=== PATIENT | male | born 1985 | race Caucasian/White ===

== ENCOUNTER 2016-02-29 00:52 | Emergency (ER) | payer OTHER ==
[2016-02-29 01:33] VITALS: BP 159/69; PULSE 99; TEMP 98.7; BMI 32.5
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
== END 2016-02-29 02:50 | disposition home or self-care (01) ==
LOC: JER 00:52
DX: S83.8X1A Sprain of other specified parts of right knee, initial encounter (principal); X50.0XXA Overexertion from strenuous movement or load, initial encounter; Y93.89 Activity, other specified; Y92.89 Other specified places as the place of occurrence of the external cause; Y99.0 Civilian activity done for income or pay
CPT/HCPCS: 99283-25

== ENCOUNTER 2016-07-04 14:28 | Emergency (ER) | payer OTHER ==
[2016-07-04 14:50] VITALS: BP 157/71; PULSE 93; TEMP 98.4; BMI 27.8
[2016-07-04] MEDS ORDERED: IBUPROFEN 400 MG TABLET (FP) PO ONE ×2 (15:29→15:33)
[2016-07-04] MEDS ORDERED: CYCLOBENZAPRINE HCL 10 MG TABLET (FP) PO ONE (15:30)
[2016-07-04] MEDS ORDERED: CYCLOBENZAPRINE HCL 10 MG TABLET (FP) ONE (15:33)
--- NOTE | 2016-07-04 15:35 | PDOC ---
History of Present Illness - General Chief Complaint: Back Pain Stated Complaint: LOWER BACK PAIN Time Seen by Provider: 07/04/16 14:53 History Source: Patient Exam Limitations: No Limitations - History of Present Illness Initial Comments: 07/04/16 15:30 [employer], while on duty today strained low back. Here with complaints of mild spasm, and pain to the mid to lower back musculature. No numbness or tingling to hands or feet, no history of back problems, no other injury. 07/04/16 19:16 Occurred: reports: just prior to arrival, this morning Severity: reports: mild, moderate Pain Location: reports: back Method of Injury: Yes: other (heavy lifting/ ) Modifying Factors: improves with: pain medication Associated Symptoms (Fall): denies symptoms Past History - Travel Traveled outside of the country in the last 30 days: No Close contact w/someone who was outside of country & ill: No - Past Medical History Allergies/Adverse Reactions: Allergies Allergy/AdvReac Type Severity Reaction Status Date / Time sulfamethoxazole Allergy Rash Verified 07/04/16 14:50 [From Bactrim] trimethoprim [From Bactrim] Allergy Rash Verified 07/04/16 14:50 Home Medications: Ambulatory Orders Cyclobenzaprine HCl [Flexeril 10 mg] 10 mg PO BID PRN #14 tablet 07/04/16 Thyroid Disease: No - Immunization History Immunization Up to Date: Yes - Psycho/Social/Smoking Cessation Hx Anxiety: No Suicidal Ideation: No Smoking Status: No Smoking History: Never smoked Number of Cigarettes Smoked Daily: 0 Cigars Per Day: 0 Hx Alcohol Use: No Drug/Substance Use Hx: No Substance Use Type: None Review of Systems - Review of Systems Able to Perform ROS?: Yes Is the patient limited Frisian proficient: Yes Constitutional: Yes: Symptoms Reported, See HPI, Malaise. No: Fever HEENTM: No: Symptoms Reported Respiratory: No: Symptoms reported, See HPI ABD/GI: Yes: Symptoms Reported Musculoskeletal: Yes: Symptoms Reported, See HPI, Back Pain, Muscle Weakness Integumentary: No: Symptoms Reported Neurological: Yes: Symptoms reported All Other Systems: Reviewed and Negative *Physical Exam - Vital Signs Last Vital Signs Temp Pulse Resp BP Pulse Ox 98.4 F 93 H 18 157/71 100 07/04/16 14:48 07/04/16 14:48 07/04/16 14:48 07/04/16 14:48 07/04/16 14:48 - Physical Exam General Appearance: Yes: Nourished, Appropriately Dressed, Apparent Distress, Mild Distress HEENT: positive: BRANDON, Normal ENT Inspection, TMs Normal, Pharynx Normal Neck: positive: Supple. negative: Tender Respiratory/Chest: positive: Lungs Clear, Normal Breath Sounds Cardiovascular: positive: Regular Rate Gastrointestinal/Abdominal: positive: Soft. negative: Tender Musculoskeletal: positive: Normal Inspection, Muscle Spasm (some tension, and mild spasm noted the paravertebral spinous muscles worse the lumbar spine and worse on the right. No spine tenderness no bone tenderness. Range of motion is limited secondary to that pain but has full). negative: Vertebral Tenderness Extremity: positive: Normal Inspection, Normal Range of Motion Integumentary: positive: Normal Color, Dry, Warm, Pale Neurologic: positive: mop maker II-XII NML intact, Fully Oriented, Normal Mood/Affect , Normal Response, Motor Strength 5/5 Progress Note - Progress Note Progress Note: Back strain, will treat with NSAIDs and cyclobenzaprine *DC/Admit/Observation/Transfer Diagnosis at time of Disposition: Low back strain Qualifiers: Encounter type: initial encounter Qualified Code(s): S39.012A - Strain of muscle, fascia and tendon of lower back, initial encounter Low back pain Qualifiers: Chronicity: acute Back pain laterality: unspecified Sciatica presence: without sciatica Qualified Code(s): M54.5 - Low back pain - Discharge Dispostion Disposition: HOME Condition at time of disposition: Stable Admit: No - Prescriptions Prescriptions: Cyclobenzaprine HCl [Flexeril 10 mg] 10 mg PO BID PRN #14 tablet PRN Reason: spasm - Patient Instructions Printed Discharge Instructions: DI for Low Back Pain Additional Instructions: Rest, no heavy lifting or exercise until pain is resolved Hot soaks to neck and low back as often as possible/hot showers or Jacuzzis No massage or therapy until spasm is gone Continue ibuprofen 2-200 mg tablets every 6 hours for the next 3 days then as needed for pain and swelling Cyclobenzaprine 1-10mg every 8 hours as needed for spasm If not significant improvement within 24 hours with medication and rest regime, followup with private physician for change in medications and /or therapy. - Post Discharge Activity Work/School Note: Back to Work
== END 2016-07-04 15:57 | disposition home or self-care (01) ==
LOC: JERFT 14:28
DX: S39.012A Strain of muscle, fascia and tendon of lower back, initial encounter (principal); M54.5 Low back pain; X58.XXXA Exposure to other specified factors, initial encounter; Y93.89 Activity, other specified; Y92.89 Other specified places as the place of occurrence of the external cause; Y99.0 Civilian activity done for income or pay
CPT/HCPCS: 99281-25

== ENCOUNTER 2016-10-07 21:26 | Emergency (ER) | payer BC, OTHER ==
[2016-10-07 21:48] VITALS: BP 139/102; PULSE 82; TEMP 97.4; BMI 33.2
[2016-10-07] MEDS ORDERED: DEXAMETHASONE SOD PHOSPHATE 10 MG/1 ML VIAL IM ONE (22:11)
--- NOTE | 2016-10-07 22:17 | PDOC ---
History of Present Illness - General Chief Complaint: Allergic Reaction Stated Complaint: BITE Time Seen by Provider: 10/07/16 22:04 History Source: Patient Exam Limitations: No Limitations - History of Present Illness Initial Comments: 10/07/16 22:11 30 yr male with c/o insect bite to lip and behind right ear at a softball game tonight. no diff breathing or swallowing. allergy to bactrim. Pt took benadryl GAS PUMPER 50mg. Severity: mild Past History - Past Medical History Allergies/Adverse Reactions: Allergies Allergy/AdvReac Type Severity Reaction Status Date / Time sulfamethoxazole Allergy Rash Verified 07/04/16 14:50 [From Bactrim] trimethoprim [From Bactrim] Allergy Rash Verified 07/04/16 14:50 Home Medications: Ambulatory Orders Valacyclovir HCl [Valtrex -] 500 mg PO ASDIR 10/07/16 Thyroid Disease: No Other medical history: Pt denies - Immunization History Immunization Up to Date: Yes - Psycho/Social/Smoking Cessation Hx Anxiety: No Suicidal Ideation: No Smoking Status: No Smoking History: Never smoked Have you smoked in the past 12 months: No Number of Cigarettes Smoked Daily: 0 Cigars Per Day: 0 Information on smoking cessation initiated: No Hx Alcohol Use: No Drug/Substance Use Hx: No Substance Use Type: None Review of Systems - Review of Systems Able to Perform ROS?: Yes Is the patient limited Dutch proficient: No Constitutional: No: Symptoms Reported HEENTM: Yes: Symptoms Reported Respiratory: No: Symptoms reported Cardiac (ROS): No: Symptoms Reported ABD/GI: No: Symptoms Reported : No: Symptoms Reported Musculoskeletal: No: Symptoms Reported Integumentary: No: Symptoms Reported *Physical Exam - Vital Signs Last Vital Signs Temp Pulse Resp BP Pulse Ox 97.4 F L 82 20 139/102 99 10/07/16 21:44 10/07/16 21:44 10/07/16 21:44 10/07/16 21:44 10/07/16 21:44 - Physical Exam General Appearance: Yes: Nourished, Appropriately Dressed HEENT: positive: EOMI, BRANDON, Other (swelling left lower lip outer 1/3rd, neg tounge swelling, uvula midline no swelling ) Neck: positive: Supple. negative: Tender Respiratory/Chest: positive: Lungs Clear, Normal Breath Sounds Cardiovascular: positive: Regular Rhythm, Regular Rate Lymphatic: negative: Adenopathy Musculoskeletal: positive: Normal Inspection Extremity: positive: Normal Capillary Refill, Normal Inspection, Normal Range of Motion Integumentary: positive: Normal Color, Dry, Warm, Swelling (posterior auricular right side with insect bite mild swelling ) Neurologic: positive: Fully Oriented, Alert, Normal Mood/Affect, Normal Response , Motor Strength 06/21 Medical Decision Making - Medical Decision Making 10/07/16 22:14 cc: insect bite to lower lip and behind right ear while playing softball about 2hrs ago. no diff breathing or swallowing will give decadron IM ice to lower lip placed pt speaking clearly uvula midline no distress. 10/07/16 22:31 BP checked on discharge 138/78 left arm pt has no history of baldev BP pt has no headache 10/07/16 22:48 *DC/Admit/Observation/Transfer Diagnosis at time of Disposition: Insect bite Qualifiers: Encounter type: initial encounter Qualified Code(s): W57.XXXA - Bitten or stung by nonvenomous insect and other nonvenomous arthropods, initial encounter - Discharge Dispostion Disposition: HOME Condition at time of disposition: Stable - Patient Instructions Additional Instructions: apply ice to lower lip every 2hrs for 15 minutes take benadryl 50mg every 6hrs as needed for itching or swelling you can also take motrin (over the counter advil, ibuprofen or motrin ) 600mg every 6hrs will help with swelling Return to ER if any worsening symptoms always use bug spray to prevent insect bites, mosquitos
[2016-10-07] MEDS ORDERED: DEXAMETHASONE SOD PHOSPHATE 10 MG/1 ML VIAL ONE (22:19)
== END 2016-10-07 22:35 | disposition home or self-care (01) ==
LOC: JER 21:26 → JERFT 21:26
PROC: 3E0233Z Introduction of Anti-inflammatory into Muscle, Percutaneous Approach (ICD-10-PCS; principal; 2016-10-07)
DX: S00.561A Insect bite (nonvenomous) of lip, initial encounter (principal); S00.461A Insect bite (nonvenomous) of right ear, initial encounter; W57.XXXA Bitten or stung by nonvenomous insect and other nonvenomous arthropods, initial encounter; Y93.67 Activity, basketball; Y92.320 Baseball field as the place of occurrence of the external cause; Y99.8 Other external cause status
CPT/HCPCS: 99281-25

== ENCOUNTER 2016-10-14 11:00 | Emergency (ER) | payer OTHER, BC ==
[2016-10-14 11:04] VITALS: BP 145/90; PULSE 74; TEMP 98; BMI 33.2
[2016-10-14] MEDS ORDERED: CYCLOBENZAPRINE HCL 10 MG TABLET (FP) PO ONE (12:18)
[2016-10-14] MEDS ORDERED: KETOROLAC TROMETHAMINE 60 MG/2 ML VIAL IM ONE (12:18)
[2016-10-14] MEDS ORDERED: KETOROLAC TROMETHAMINE 60 MG/2 ML VIAL ONE (12:18)
[2016-10-14] MEDS ORDERED: CYCLOBENZAPRINE HCL 10 MG TABLET (FP) ONE (12:18)
--- NOTE | 2016-10-14 12:22 | PDOC ---
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 has suffered same type of strain approximately one month ago and spontaneously resolved. States this morning was uncertain as to the type of stretch however felt the same pulling. States is at waistline and radiates into gluteus. No numbness or tingling to hands or feet, no problems with bowel or bladder. Has taken no medication for relief of same. 10/14/16 13:05 Occurred: reports: just prior to arrival Severity: reports: mild, moderate Pain Location: reports: back Method of Injury: Yes: unknown Modifying Factors: improves with: None Loss of Consciousness: no loss of consciousness Associated Symptoms (Fall): denies symptoms Past History - Travel Traveled outside of the country in the last 30 days: No Close contact w/someone who was outside of country & ill: No - Past Medical History Allergies/Adverse Reactions: Allergies Allergy/AdvReac Type Severity Reaction Status Date / Time sulfamethoxazole Allergy Rash Verified 10/14/16 11:04 [From Bactrim] trimethoprim [From Bactrim] Allergy Rash Verified 10/14/16 11:04 Home Medications: Ambulatory Orders Cyclobenzaprine HCl [Flexeril 10 mg] 10 mg PO BID PRN #14 tablet 10/14/16 Thyroid Disease: No - Immunization History Immunization Up to Date: Yes - Psycho/Social/Smoking Cessation Hx Anxiety: No Suicidal Ideation: No Smoking Status: No Smoking History: Never smoked Have you smoked in the past 12 months: No Number of Cigarettes Smoked Daily: 0 Cigars Per Day: 0 Information on smoking cessation initiated: No Hx Alcohol Use: No Drug/Substance Use Hx: No Substance Use Type: None Trauma Specific PMHX - Complaint Specific PMHX Back Injury: Yes Neck Injury: No Review of Systems - Review of Systems Able to Perform ROS?: Yes Is the patient limited Ukrainian proficient: Yes Constitutional: Yes: See HPI, Malaise. No: Symptoms Reported HEENTM: Yes: See HPI. No: Symptoms Reported Respiratory: Yes: Symptoms reported, See HPI Musculoskeletal: Yes: Symptoms Reported, See HPI, Back Pain, Muscle Pain, Muscle Weakness Integumentary: No: Symptoms Reported All Other Systems: Reviewed and Negative *Physical Exam - Vital Signs Last Vital Signs Temp Pulse Resp BP Pulse Ox 98 F 74 18 145/90 99 10/14/16 11:01 10/14/16 11:01 10/14/16 11:01 10/14/16 11:01 10/14/16 11:01 - Physical Exam General Appearance: Yes: Nourished, Appropriately Dressed, Apparent Distress, Mild Distress HEENT: positive: BRANDON, TMs Normal, Pharynx Normal Neck: positive: Supple. negative: Tender Respiratory/Chest: positive: Lungs Clear, Normal Breath Sounds Gastrointestinal/Abdominal: positive: Soft Musculoskeletal: positive: Normal Inspection, Decreased Range of Motion, Muscle Spasm (noted at the paravertebral spinous muscles along waistline and extending into upper glutes. Worse on the right than the left. Range of motion limited secondary to the spasm to approximately 45 bending at waist.) Extremity: positive: Normal Range of Motion. negative: Normal Capillary Refill , Tender Integumentary: positive: Normal Color, Dry, Pale Neurologic: positive: web producer II-XII NML intact, Fully Oriented, Alert, Normal Mood/ Affect, Normal Response, Motor Strength 5/5 Progress Note - Progress Note Progress Note: Back strain, will treat with NSAIDs and cyclobenzaprine *DC/Admit/Observation/Transfer Diagnosis at time of Disposition: Back sprain or strain Strain of mid-back Qualifiers: Encounter type: initial encounter Qualified Code(s): S29.012A - Strain of muscle and tendon of back wall of thorax, initial encounter - Discharge Dispostion Disposition: HOME Condition at time of disposition: Stable Admit: No - Patient Instructions Printed Discharge Instructions: DI for Back Strain or Sprain Additional Instructions: Rest, no heavy lifting or exercise until pain is resolved Hot soaks to neck and low back as often as possible/hot showers or Jacuzzis No massage or therapy until spasm is gone Continue ibuprofen 2-200 mg tablets every 6 hours for the next 3 days then as needed for pain and swelling Cyclobenzaprine 1-10mg every 8 hours as needed for spasm If not significant improvement within 24 hours with medication and rest regime, followup with private physician for change in medications and /or therapy. - Post Discharge Activity Work/School Note: Back to Work
== END 2016-10-14 12:51 | disposition home or self-care (01) ==
LOC: JERFT 11:00
PROC: 3E0233Z Introduction of Anti-inflammatory into Muscle, Percutaneous Approach (ICD-10-PCS; principal; 2016-10-14)
DX: S29.012A Strain of muscle and tendon of back wall of thorax, initial encounter (principal); V86.41XA Person injured while boarding or alighting from ambulance or fire engine, initial encounter; Y92.488 Other paved roadways as the place of occurrence of the external cause; Y99.0 Civilian activity done for income or pay; Y93.89 Activity, other specified
CPT/HCPCS: 99281-25

== ENCOUNTER 2018-05-18 11:56 | Emergency (ER) | payer OTHER ==
[2018-05-18 12:14] VITALS: BP 146/83; PULSE 85; TEMP 98.5; BMI 31.8
--- NOTE | 2018-05-18 12:38 | PDOC ---
History of Present Illness - General Stated Complaint: RT KNEE PAIN Time Seen by Provider: 05/18/18 12:32 - History of Present Illness Initial Comments: 05/18/18 12:35 32-year-old male without comorbidities presents for evaluation of right knee pain. He states he was walking down steps carrying a chair at work and felt his knee buckle. No prior problems with the right knee. No comorbidities. Past History - Past Medical History Allergies/Adverse Reactions: Allergies Allergy/AdvReac Type Severity Reaction Status Date / Time sulfamethoxazole Allergy Rash Verified 05/18/18 12:29 [From Bactrim] trimethoprim [From Bactrim] Allergy Rash Verified 05/18/18 12:29 Home Medications: Ambulatory Orders NK [No Known Home Medication] 10/08/17 COPD: No DVT: No Thyroid Disease: No - Immunization History Immunization Up to Date: Yes - Suicide/Smoking/Psychosocial Hx Smoking Status: No Smoking History: Never smoked Have you smoked in the past 12 months: No Number of Cigarettes Smoked Daily: 0 Cigars Per Day: 0 Information on smoking cessation initiated: No Hx Alcohol Use: No Drug/Substance Use Hx: No Substance Use Type: None Review of Systems - Review of Systems Musculoskeletal: Yes: Joint Pain *Physical Exam - Vital Signs Last Vital Signs Temp Pulse Resp BP Pulse Ox 98.5 F 85 18 146/83 100 05/18/18 12:11 05/18/18 12:11 05/18/18 12:11 05/18/18 12:11 05/18/18 12:11 - Physical Exam Comments: 05/18/18 12:36 Right knee skin color and temperature are normal range of motion is full and nonpainful. There is no instability. No medial joint line tenderness. Mild posterior lateral joint line tenderness. No appreciable intra-articular effusion. No patellofemoral facet joint tenderness. No apprehension. Thighs and calves are soft and nontender. Normal hip and ankle range of motion. Negative straight leg raise test. Neurovascularly intact without gross sensorimotor deficits. Medical Decision Making - Medical Decision Making 05/18/18 12:37 No acute findings mild posterior lateral joint line tenderness may represent the posterior lateral meniscal tear. I will have him follow-up with or don't. *DC/Admit/Observation/Transfer Diagnosis at time of Disposition: Knee injury - Discharge Dispostion Disposition: HOME Condition at time of disposition: Stable Decision to Admit order: No - Referrals Referrals: Jc Hancock DO [Staff Physician] - - Patient Instructions Printed Discharge Instructions: DI for Knee Pain, Meniscal Tear Additional Instructions: Tylenol and Motrin as directed for pain. Return to the emergency room for worsening symptoms. Please follow-up with orthopedic surgery in 1-2 days for further evaluation and treatment options. - Post Discharge Activity
== END 2018-05-18 13:02 | disposition home or self-care (01) ==
LOC: JERFT 11:56
DX: S89.81XA Other specified injuries of right lower leg, initial encounter (principal); W10.8XXA Fall (on) (from) other stairs and steps, initial encounter; Y93.89 Activity, other specified; Y92.89 Other specified places as the place of occurrence of the external cause; Y99.0 Civilian activity done for income or pay
CPT/HCPCS: 99281-25

== ENCOUNTER 2018-11-30 19:20 | Emergency (ER) | payer OTHER ==
[2018-11-30 19:45] VITALS: BP 141/80; PULSE 75; TEMP 98; BMI 32.5
[2018-11-30] MEDS ORDERED: METHOCARBAMOL 500 MG TABLET PO ONE (19:45)
[2018-11-30] MEDS ORDERED: KETOROLAC TROMETHAMINE 30 MG/1 ML VIAL IM ONE (19:45)
--- NOTE | 2018-11-30 19:45 | PDOC ---
Rapid Medical Evaluation Time Seen by Provider: 11/30/18 19:41 Medical Evaluation: Allergies Allergy/AdvReac Type Severity Reaction Status Date / Time sulfamethoxazole Allergy Rash Verified 05/18/18 12:29 [From Bactrim] trimethoprim [From Bactrim] Allergy Rash Verified 05/18/18 12:29 11/30/18 19:41 I have performed a brief in-person evaluation of this patient. The patient presents with a chief complaint of: R sided low back pain which started 1-2 hours ago while putting on his backpack on at work. 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 Pain does not radiate anywhere. No urinary symptoms. Pt has not taken any meds for pain. I have ordered the following: toradol and robaxin The patient will proceed to the ED for further evaluation. Discharge Disposition - Diagnosis Low back pain - Referrals - Patient Instructions - Post Discharge Activity
[2018-11-30] MEDS ORDERED: KETOROLAC TROMETHAMINE 30 MG/1 ML VIAL ONE (19:58)
[2018-11-30] MEDS ORDERED: METHOCARBAMOL 500 MG TABLET ONE (19:58)
--- NOTE | 2018-11-30 20:11 | PDOC ---
History of Present Illness - General Chief Complaint: Back Pain Stated Complaint: L BACK PAIN Time Seen by Provider: 11/30/18 19:41 - History of Present Illness Initial Comments: 11/30/18 20:09 33-year-old male without comorbidities presents for evaluation of right-sided lower back pain without radicular or systemic symptoms times a few hours which occurred at work while putting on a heavy piece of equipment. 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 Past History - Past Medical History Allergies/Adverse Reactions: Allergies Allergy/AdvReac Type Severity Reaction Status Date / Time sulfamethoxazole Allergy Rash Verified 11/30/18 19:44 [From Bactrim] trimethoprim [From Bactrim] Allergy Rash Verified 11/30/18 19:44 Home Medications: Ambulatory Orders Cyclobenzaprine HCl [Flexeril 10 mg] 10 mg PO HS PRN #10 tablet 11/30/18 Ibuprofen [Motrin -] 600 mg PO TID #30 tablet 11/30/18 CVA: No COPD: No DVT: No Thyroid Disease: No - Immunization History Immunization Up to Date: Yes - Psycho Social/Smoking Cessation Hx Smoking Status: No Smoking History: Never smoked Have you smoked in the past 12 months: No Number of Cigarettes Smoked Daily: 0 Cigars Per Day: 0 Information on smoking cessation initiated: No Hx Alcohol Use: No Drug/Substance Use Hx: No Substance Use Type: None Review of Systems - Review of Systems Constitutional: No: Fever : No: Incontinence Musculoskeletal: Yes: Back Pain Neurological: No: Paresthesia *Physical Exam - Vital Signs Last Vital Signs Temp Pulse Resp BP Pulse Ox 98.0 F 75 17 141/80 100 11/30/18 19:42 11/30/18 19:42 11/30/18 19:42 11/30/18 19:42 11/30/18 19:42 - Physical Exam Comments: 11/30/18 20:09 Lumbar spine skin color temperature normal range of motion is full. There is no midline tenderness. Mild right-sided paralumbar musculature spasm and tenderness. 5 out of 5 strength bilateral lower extremities without gross sensorimotor deficits thighs and calves are soft and nontender neurovascularly intact. ED Treatment Course - Medications Given in the ED: ED Medications Discontinued Medications Generic Name Dose Route Start Last Admin Trade Name Freq PRN Reason Stop Dose Admin Ketorolac Tromethamine 30 mg 11/30/18 19:45 11/30/18 20:02 Toradol Injection - IM 11/30/18 19:46 30 mg ONCE ONE Administration Methocarbamol 1,000 mg 11/30/18 19:45 11/30/18 20:02 Robaxin - PO 11/30/18 19:46 1,000 mg ONCE ONE Administration Medical Decision Making - Medical Decision Making 11/30/18 20:09 Lumbar spine strain Flexeril and Motrin at home follow-up with neurosurgery Discharge - Discharge Information Problems reviewed: Yes Clinical Impression/Diagnosis: Low back pain, Low back strain Condition: Stable Disposition: HOME - Admission No - Additional Discharge Information Prescriptions: Cyclobenzaprine HCl [Flexeril 10 mg] 10 mg PO HS PRN #10 tablet PRN Reason: Muscle Spasms Ibuprofen [Motrin -] 600 mg PO TID #30 tablet - Follow up/Referral Referrals: Hema Abreu MD, [facility] [Staff Physician] - - Patient Discharge Instructions Additional Instructions: Return to the emergency room for worsening symptoms. Please take the anti- inflammatory 1 tablet 3 times a day with food. No other anti-inflammatory such as Advil Motrin ibuprofen or Aleve. You may supplement your pain medication with Tylenol as directed. The muscle relaxers 1 tablet before bedtime will make you sleepy. Return to the emergency room for worsening symptoms and without fail follow-up with neurosurgery for further evaluation and treatment options. - Post Discharge Activity Work/Back to School Note: Back to Work
== END 2018-11-30 20:18 | disposition home or self-care (01) ==
LOC: JER 19:20
PROC: 3E0233Z Introduction of Anti-inflammatory into Muscle, Percutaneous Approach (ICD-10-PCS; principal; 2018-11-30)
DX: S39.012A Strain of muscle, fascia and tendon of lower back, initial encounter (principal); X50.0XXA Overexertion from strenuous movement or load, initial encounter; Y93.89 Activity, other specified; Y92.89 Other specified places as the place of occurrence of the external cause; Y99.0 Civilian activity done for income or pay; Z88.2 Allergy status to sulfonamides
CPT/HCPCS: 99281-25

== ENCOUNTER 2019-03-26 16:14 | Emergency (ER) | payer OTHER ==
[2019-03-26] MEDS ORDERED: IBUPROFEN 600 MG TABLET (FP) PO ONE ×2 (16:17→16:31)
--- NOTE | 2019-03-26 16:18 | PDOC ---
Rapid Medical Evaluation Chief Complaint: Back Pain Time Seen by Provider: 03/26/19 16:15 Medical Evaluation: Allergies Allergy/AdvReac Type Severity Reaction Status Date / Time sulfamethoxazole Allergy Rash Verified 11/30/18 19:44 [From Bactrim] trimethoprim [From Bactrim] Allergy Rash Verified 11/30/18 19:44 03/26/19 16:16 33 year old male c/o lower back pain. 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 denies fall/ trauma to the area a: back pain P; ibuprofen Discharge Disposition - Diagnosis Low back pain Qualifiers: Chronicity: acute Back pain laterality: unspecified Sciatica presence: unspecified whether sciatica present Qualified Code(s): M54.5 - Low back pain - Referrals - Patient Instructions - Post Discharge Activity
[2019-03-26 16:19] VITALS: BP 149/86; PULSE 66; TEMP 98; BMI 34.7
--- NOTE | 2019-03-26 16:35 | PDOC ---
History of Present Illness - General Chief Complaint: Pain Stated Complaint: PAIN Time Seen by Provider: 03/26/19 16:15 History Source: Patient - History of Present Illness Occurred: reports: this afternoon Pain Location: reports: back Past History - Past Medical History Allergies/Adverse Reactions: Allergies Allergy/AdvReac Type Severity Reaction Status Date / Time sulfamethoxazole Allergy Rash Verified 03/26/19 16:19 [From Bactrim] trimethoprim [From Bactrim] Allergy Rash Verified 03/26/19 16:19 Home Medications: Ambulatory Orders Cyclobenzaprine HCl [Flexeril 10 mg] 10 mg PO HS PRN #10 tablet 11/30/18 Ibuprofen [Motrin -] 600 mg PO TID #30 tablet 11/30/18 CVA: No COPD: No DVT: No Thyroid Disease: No - Immunization History Immunization Up to Date: Yes - Psycho Social/Smoking Cessation Hx Smoking Status: No Smoking History: Never smoked Have you smoked in the past 12 months: No Number of Cigarettes Smoked Daily: 0 Cigars Per Day: 0 Information on smoking cessation initiated: No Hx Alcohol Use: No Drug/Substance Use Hx: No Substance Use Type: None Trauma Specific PMHX - Complaint Specific PMHX Back Injury: Yes Neck Injury: No Review of Systems - Review of Systems ABD/GI: No: Nausea, Vomiting : No: Dysuria Musculoskeletal: Yes: Back Pain Neurological: No: Numbness, Tingling, Weakness, Dizziness *Physical Exam - Vital Signs Last Vital Signs Temp Pulse Resp BP Pulse Ox 98.0 F 66 17 149/86 100 03/26/19 16:17 03/26/19 16:17 03/26/19 16:17 03/26/19 16:17 03/26/19 16:17 - Physical Exam General Appearance: Yes: Appropriately Dressed. No: Apparent Distress HEENT: positive: Normal Voice Neck: positive: Supple Respiratory/Chest: negative: Respiratory Distress Musculoskeletal: negative: CVA Tenderness, Vertebral Tenderness Extremity: positive: Normal Inspection Integumentary: positive: Dry, Warm Neurologic: positive: Fully Oriented, Alert, Normal Mood/Affect Medical Decision Making - Medical Decision Making 03/26/19 16:32 33-year-old male, no significant history, here with non-radiating mid lower back pain that started at work while patient was pulling leaves from a tree that had fell into an individual's home today. 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 [employer] seee exam M/l lower back strain No red flags Exam unremarkable Declines pain meds -Dc to take OTC meds prn pain -PMD f/u as needed Discharge - Discharge Information Problems reviewed: Yes Clinical Impression/Diagnosis: Low back pain Qualifiers: Chronicity: acute Back pain laterality: unspecified Sciatica presence: unspecified whether sciatica present Qualified Code(s): M54.5 - Low back pain Condition: Good Disposition: HOME - Follow up/Referral - Patient Discharge Instructions Patient Printed Discharge Instructions: Low Back Pain, DI for Back Strain or Sprain Additional Instructions: Your pain is most likely muscular. Take Motrin every 6 hours as needed until pain resolves If pain persists please follow-up with your PMD - Post Discharge Activity Work/Back to School Note: Back to Work
== END 2019-03-26 16:34 | disposition home or self-care (01) ==
LOC: JERFT 16:14
DX: S39.012A Strain of muscle, fascia and tendon of lower back, initial encounter (principal); X50.9XXA Other and unspecified overexertion or strenuous movements or postures, initial encounter; Y93.89 Activity, other specified; Y92.89 Other specified places as the place of occurrence of the external cause; Y99.0 Civilian activity done for income or pay; Z88.2 Allergy status to sulfonamides
CPT/HCPCS: 99281-25

== ENCOUNTER 2020-03-09 20:24 | Emergency (ER) | payer OTHER ==
[2020-03-09 20:35] VITALS: BP 131/89; PULSE 88; TEMP 98.1; BMI 32.5
== END 2020-03-09 21:31 | disposition home or self-care (01) ==
LOC: JERFT 20:24
DX: M79.641 Pain in right hand (principal)
CPT/HCPCS: 73130-TC-RT-FY; 99283-25

== ENCOUNTER 2020-10-31 16:21 | Emergency (ER) | payer OTHER ==
[2020-10-31 16:31] VITALS: BP 134/89; PULSE 76; TEMP 98.3; BMI 32.5
== END 2020-10-31 18:05 | disposition home or self-care (01) ==
LOC: JERFT 16:21 → JER 16:21
DX: S86.911A Strain of unspecified muscle(s) and tendon(s) at lower leg level, right leg, initial encounter (principal); X50.0XXA Overexertion from strenuous movement or load, initial encounter
CPT/HCPCS: 99281-25

== ENCOUNTER 2021-05-22 20:57 | Emergency (ER) | payer OTHER ==
[2021-05-22 21:03] VITALS: BP 126/83; PULSE 88; TEMP 98.9; BMI 30.9
== END 2021-05-22 21:38 | disposition home or self-care (01) ==
LOC: JERFT 20:57
DX: M79.644 Pain in right finger(s) (principal)
CPT/HCPCS: 73130-TC-RT-FY; 99283-25

== ENCOUNTER 2021-09-13 09:03 | Emergency (ER) | payer OTHER ==
[2021-09-13 09:14] VITALS: BP 133/85; PULSE 65; RESP 18; TEMP 98.1; BMI 31.6
[2021-09-13] MEDS ORDERED: KETOROLAC TROMETHAMINE 30 MG/1 ML VIAL IM ONE (09:42)
[2021-09-13] MEDS ORDERED: KETOROLAC TROMETHAMINE 30 MG/1 ML VIAL ONE (09:48)
[2021-09-13] MEDS ORDERED: ACETAMINOPHEN 500 MG TABLET (FP) ONE (10:02)
== END 2021-09-13 10:33 | disposition home or self-care (01) ==
LOC: JERFT 09:03
PROC: 3E023GC Introduction of Other Therapeutic Substance into Muscle, Percutaneous Approach (ICD-10-PCS; principal; 2021-09-13)
DX: S20.211A Contusion of right front wall of thorax, initial encounter (principal); W22.8XXA Striking against or struck by other objects, initial encounter
CPT/HCPCS: 71101-TC-RT-FY; 99284-25

== ENCOUNTER 2021-11-22 19:03 | Emergency (ER) | payer OTHER ==
[2021-11-22 19:25] VITALS: BP 101/69; PULSE 78; RESP 18; TEMP 98.4; BMI 32.5
== END 2021-11-22 21:34 | disposition home or self-care (01) ==
LOC: JERFT 19:03
DX: M25.562 Pain in left knee (principal)
CPT/HCPCS: 73562-TC-LT-FY; 99284-25

== ENCOUNTER 2022-01-24 09:30 | Inpatient (IN) | payer BC, OTHER ==
[~2022-01-24 09:30] MED LIST: BUPIVACAINE HCL/PF 0.5% (5MG/ML) 10 ML VIAL NR ONE; ceFAZolin SODIUM 1 GM VIAL IVPB ONE
[2022-01-24] MEDS ORDERED: ACETAMINOPHEN 1000 MG/100 ML BAG IVPB ONE (09:55)
[2022-01-24] MEDS ORDERED: ACETAMINOPHEN INJECTION 100 ML IVPB ONE (10:18)
[2022-01-24] MEDS ORDERED: SODIUM CHLORIDE 0.9% 500 ML INFUS.BAG IV ONE ×2 (10:44→12:14)
[2022-01-24 10:49] LABS: HEMATOCRIT 42.5 % (35.4-49); HEMOGLOBIN 14.3 G/dL (11.7-16.9); MCH 30.4 pg (25.7-33.7); MCHC 33.7 g/dl (32.0-35.9); MEAN CELL VOLUME 90.3 fl (80-96); MEAN PLT VOLUME 8.6 fl (7.5-11.1); PLATELET COUNT 189.9 10^3/uL (134-434); RBC 4.71 10^6/uL (4.00-5.60); RDW 13.2 % (11.9-15.9); WHITE BLOOD COUNT 9.1 10^3/uL (4.0-10.8)
[2022-01-24 10:56] LABS: BILIRUBIN,TOTAL 0.7 mg/dl (0.2-1); MAGNESIUM 1.7 mg/dL (1.8-2.4); TOT PROT 6.8 g/dl (6.4-8.2)
[2022-01-24 11:29] LABS: PLATELET ESTIMATE ADEQUATE
[2022-01-24] MEDS ORDERED: PIPERACILLIN/TAZOB 4.5 GM 4.5 GM in DEXTROSE 5%-WATER 100 ML IVPB ONE (12:13)
[2022-01-24] MEDS ORDERED: PIPERACILLIN/TAZOBACTAM 4.5 GM VIAL IVPB ONE (12:15)
[2022-01-24 12:59] LABS: INR 1.2 (0.83-1.09); PROTHROMBIN TIME (PATIENT) 13.8 SEC (9.7-13.0)
[2022-01-24 13:24] VITALS: BMI 32.3
[2022-01-24] MEDS ORDERED: ACETAMINOPHEN 1000 MG/100 ML BAG IVPB PRN ×2 (16:08→19:10)
[2022-01-24] MEDS ORDERED: PROPOFOL 40 ML ONE (16:37)
[2022-01-24] MEDS ORDERED: LIDOCAINE HCL/PF 2% SDV 5ML VIAL ONE (16:38)
[2022-01-24] MEDS ORDERED: ROCURONIUM BROMIDE 50 MG/5 ML SYRINGE ONE (16:38)
[2022-01-24] MEDS ORDERED: ONDANSETRON 4 MG/2 ML VIAL IVPUSH PRN ×3 (17:01→19:10)
[2022-01-24] MEDS ORDERED: FENTANYL CITRATE/PF 50 MCG/ML VIAL IVPUSH PRN ×2 (17:01→19:10)
[2022-01-24] MEDS ORDERED: LACTATED RINGERS SOLUTION 1,000 ML IV SCH ×2 (17:15→19:15)
[2022-01-24] MEDS ORDERED: MIDAZOLAM HCL 2 MG/2 ML SINGLE DOSE VIAL ONE (17:37)
[2022-01-24] MEDS ORDERED: FENTANYL CITRATE/PF 50 MCG/ML VIAL ONE ×2 (17:39)
[2022-01-24] MEDS ORDERED: KETAMINE HCL 500 MG/10 ML VIAL ONE (18:01)
[2022-01-24] MEDS ORDERED: BUPIVACAINE HCL/PF 0.5% (5MG/ML) 10 ML VIAL NR ONE (18:16)
[2022-01-24] MEDS ORDERED: NEOSTIGMINE METHYLSULFATE 0.5 MG/ML - 10 ML MDV ONE (18:31)
[2022-01-24] MEDS ORDERED: KETOROLAC TROMETHAMINE 30 MG/1 ML VIAL ONE (18:32)
[2022-01-24] MEDS ORDERED: PROPOFOL 20 ML ONE (18:44)
[2022-01-24] MEDS ORDERED: oxyCODONE HCL 5 MG TABLET PO PRN (18:58)
[2022-01-24] MEDS ORDERED: PIPERACILLIN/TAZOB 3.375 GM 3.375 GM in DEXTROSE 5%-WATER - 50 ML IVPB SCH (20:00)
[2022-01-24] MEDS ORDERED: CEFTRIAXONE 1 GM in DEXTROSE 5%-WATER - 50 ML IVPB SCH (20:00)
[2022-01-24] MEDS: LACTATED RINGERS SOLUTION 1,000 ML IV SCH (21:20)
[2022-01-25] MEDS ORDERED: MELATONIN 5 MG TABLETS PO ONE (01:25)
[2022-01-25] MEDS: LACTATED RINGERS SOLUTION 1,000 ML IV SCH (03:32)
[2022-01-25 10:32] LABS: BASO % 0.2 % (0-2.0); EOS % 0.1 % (0-4.5); HEMATOCRIT 36.2 % (35.4-49); HEMOGLOBIN 12.7 GM/dL (11.7-16.9); MCH 31.1 pg (25.7-33.7); MCHC 35.2 g/dl (32.0-35.9); MEAN CELL VOLUME 88.5 fl (80-96); MEAN PLT VOLUME 8.8 fl (7.5-11.1); MONO % 5.4 % (3.8-10.2); NEUT % 84.3 % (42.8-82.8); PLATELET COUNT 216 10^3/uL (134-434); RBC 4.09 M/mm3 (4.00-5.60); RDW 12.8 % (11.9-15.9); WHITE BLOOD COUNT 7.6 K/mm3 (4.0-10.0)
[2022-01-25 12:50] LABS: ALBUMIN 3.2 g/dl (3.4-5.0); BILIRUBIN,TOTAL 0.5 mg/dL (0.2-1); BLOOD UREA NITROGEN 10.8 mg/dL (7-18); CREATININE 0.8 mg/dL (0.55-1.3); MAGNESIUM 2.1 mg/dL (1.8-2.4); PHOSPHOROUS 4.4 mg/dL (2.5-4.9); TOT PROT 6.1 g/dl (6.4-8.2)
[2022-01-25 12:59] VITALS: RESP 17
[2022-01-25 14:11] VITALS: BP 117/62; PULSE 66; TEMP 97.9
== END 2022-01-25 22:11 | disposition home or self-care (01) | DRG 343 ==
LOC: FER 09:30 → J2C 15:35 → J5S 21:04 → J6S 01-25 03:22
PROVIDERS: ADMIT Family Medicine; ATTEND Internal Medicine
PROC: 0DTJ4ZZ Resection of Appendix, Percutaneous Endoscopic Approach (ICD-10-PCS; principal; 2022-01-24 17:00)
DX: K35.890 Other acute appendicitis without perforation or gangrene (principal)
CPT/HCPCS: 0241U-QW; 36415; 74177-TC; 80053; 81003; 83735; 84100; 85025; 85027; 85610; 86850; 86900; 86901; 87086; 88304-TC; 94760; 99285-25; G0378; Q9967

== ENCOUNTER 2022-07-16 18:53 | Emergency (ER) | payer OTHER ==
[2022-07-16 19:03] VITALS: BP 115/81; PULSE 88; RESP 18; TEMP 98; BMI 31.1
[2022-07-16] MEDS ORDERED: LIDOCAINE 5% TOPICAL PATCH ONE (20:40)
[2022-07-16] MEDS ORDERED: IBUPROFEN 600 MG TABLET (FP) PO ONE ×2 (20:41)
[2022-07-16] MEDS ORDERED: LIDOCAINE 5% TOPICAL PATCH TP ONE (20:41)
[2022-07-16] MEDS ORDERED: LIDOCAINE PATCH REMOVAL MC SCH (22:00)
== END 2022-07-16 21:13 | disposition home or self-care (01) ==
LOC: JER 18:53 → JERFT 18:53
DX: M54.50 Low back pain, unspecified (principal); S39.012A Strain of muscle, fascia and tendon of lower back, initial encounter
CPT/HCPCS: 99283-25

== ENCOUNTER 2022-12-24 21:56 | Emergency (ER) | payer OTHER ==
[2022-12-24 22:08] VITALS: BP 132/69; PULSE 72; RESP 18; TEMP 98.1; BMI 32.5
== END 2022-12-24 22:56 | disposition home or self-care (01) ==
LOC: JER 21:56
DX: M54.50 Low back pain, unspecified (principal)
CPT/HCPCS: 72100-TC-FY; 99283-25